=== PATIENT | male | born 1960 | race Caucasian/White ===

== ENCOUNTER 2020-01-03 16:29 | Observation (INO) ==
[2020-01-03] MEDS ORDERED: Acetaminophen 325 MG TABLET PO PRN (19:16)
[2020-01-03] MEDS ORDERED: Naloxone 0.4 MG/ML INJ IVP PRN (19:16)
[2020-01-03] MEDS ORDERED: Ondansetron 4 MG/2 ML VIAL IVP PRN (19:16)
[2020-01-03] MEDS ORDERED: D5% in Water 1,000 ML IVC PRN (19:19)
[2020-01-03] MEDS ORDERED: Dextrose Gel 15 GM/37.5 ML TUBE PO PRN ×2 (19:19)
[2020-01-03] MEDS ORDERED: *HR* Dextrose 50 % in Water (Vial) 50 ML VIAL IVP PRN (19:19)
[2020-01-03 20:32] LABS: Estimated Average Glucose 174 mg/dl
[2020-01-03] MEDS ORDERED: Ipratropium/Albuterol Neb 3 ML IH PRN (20:39)
[2020-01-03] MEDS: Insulin LISPRO 300 UNITS/3 ML VIAL SQ SCH ×2 (22:16→23:06)
[2020-01-03] MEDS: Furosemide 20 MG/2 ML VIAL IVP SCH (22:30)
[2020-01-03] MEDS: Azithromycin 500 MG in 0.9 % Sodium Chloride 250 ML IVPB SCH (22:31)
[2020-01-03] MEDS: methocarbamoL 500 MG TABLET PO PRN (23:16)
[2020-01-03] MEDS: PARoxetine 20 MG TABLET PO SCH (23:20)
[2020-01-04] MEDS: *HR* Metoprolol 5 MG/5 ML VIAL IVP SCH ×4 (01:08→16:46)
[2020-01-04 01:49] LABS: Basophils # 0.1 K/mcL (0.0-0.2); Basophils % 0.3 %; Eosinophils # 0.2 K/mcL (0.0-0.6); Hematocrit 40.2 % (37.5-50.1); Hemoglobin 13.3 g/dL (12.9-16.9); Immature Granulocytes % 1.5 % (0-4); Lymphocytes # 2.8 K/mcL (0.6-4.6); Mean Corpuscular HGB Conc 33.1 g/dL (31.6-35.5); Mean Corpuscular Hemoglobin 32.6 pg (28.0-33.3); Mean Corpuscular Volume 98.5 fL (83.0-100.0); Mean Platelet Volume 11.3 fL (9.4-12.4); Monocytes # 1.5 K/mcL (0.0-1.3); Monocytes % 8.3 %; Neutrophils # 12.9 K/mcL (1.6-8.9); Platelet Count 209 K/mcL (140-400); Red Blood Count 4.08 M/mcL (4.19-5.50); Red Cell Distribution Width 15.1 % (11.5-14.5); Segmented Neutrophils % 72.9 %; White Blood Count 17.7 K/mcL (4.3-11.1)
[2020-01-04 02:01] LABS: INR 1.4; Prothrombin Time 15.9 Seconds (9.4-12.1)
[2020-01-04 02:15] LABS: Alanine Aminotransferase 86 Units/L (7-52); Albumin 3.7 g/dL (3.5-5.7); Albumin/Globulin Ratio 1.3 (1.1-2.2); Alkaline Phosphatase 254 Units/L (34-104); Aspartate Amino Transferase 24 Units/L (13-39); BUN/Creatinine Ratio 29 (6-26); Bilirubin,Total 0.8 mg/dL (0.3-1.0); Blood Urea Nitrogen 35 mg/dL (8-23); Calcium 8.8 mg/dL (8.6-10.3); Carbon Dioxide 22 mEq/L (23-29); Chloride 102 mEq/L (98-107); Chol/HDL Ratio 5.5 (0-4.9); Cholesterol 143 mg/dL (< 200); Globulin 2.8 g/dL (2.4-3.5); Glucose 249 mg/dL (70-105); HDL Cholesterol 26 mg/dL (40-59); LDL Cholesterol,Calculated 73 mg/dL (< 100); Magnesium 1.7 mg/dL (1.6-2.6); Osmolality,Calculated 298 (280-300); Phosphorous 4.5 mg/dL (2.7-4.5); Sodium 136 mEq/L (136-145); Total Protein 6.5 g/dL (6.4-8.9); Triglycerides 221 mg/dL (< 150); eGFR For African Americans > 60 (> 60); eGFR For Non-African Americans > 60 (> 60)
[2020-01-04] MEDS: Insulin LISPRO 300 UNITS/3 ML VIAL SQ SCH ×4 (07:48→21:48)
[2020-01-04] MEDS: Furosemide 20 MG/2 ML VIAL IVP SCH (07:48)
[2020-01-04] MEDS: DilTIAZem CD (24hr) 240 MG CAP.ER.24H PO SCH (07:48)
[2020-01-04] MEDS: cefTRIAXone 1,000 MG in 0.9 % Sodium Chloride Mini Bag 100 ML IVPB SCH (09:04)
[2020-01-04] MEDS: methocarbamoL 500 MG TABLET PO PRN (11:14)
[2020-01-04] MEDS: *HR* HYDROcodone/Acet 5/325 mg TABLET PO PRN ×2 (12:02→19:19)
[2020-01-04] MEDS ORDERED: *HR* Rivaroxaban 10 MG TABLET PO SCH (12:30)
[2020-01-04] MEDS: Melatonin 3 MG TABLET PO SCH (21:46)
[2020-01-04] MEDS: Pregabalin 50 MG CAPSULE PO SCH (21:46)
[2020-01-04] MEDS: PARoxetine 20 MG TABLET PO SCH (21:46)
[2020-01-04] MEDS: Fluticasone Propionate Nasal 50 MCG/SPRAY BOTTLE NS SCH (21:47)
[2020-01-04] MEDS: Azithromycin 500 MG in 0.9 % Sodium Chloride 250 ML IVPB SCH (21:48)
[2020-01-05] MEDS: *HR* Metoprolol 5 MG/5 ML VIAL IVP SCH ×4 (00:10→16:51)
[2020-01-05 04:25] LABS: Hematocrit 39.3 % (37.5-50.1); Hemoglobin 12.9 g/dL (12.9-16.9); Mean Corpuscular HGB Conc 32.8 g/dL (31.6-35.5); Mean Corpuscular Hemoglobin 32.8 pg (28.0-33.3); Mean Platelet Volume 11.4 fL (9.4-12.4); Platelet Count 199 K/mcL (140-400); Red Blood Count 3.93 M/mcL (4.19-5.50); White Blood Count 15.9 K/mcL (4.3-11.1)
[2020-01-05 04:47] LABS: BUN/Creatinine Ratio 42 (6-26); Blood Urea Nitrogen 35 mg/dL (8-23); Calcium 8.8 mg/dL (8.6-10.3); Carbon Dioxide 25 mEq/L (23-29); Chloride 105 mEq/L (98-107); Glucose 157 mg/dL (70-105); Osmolality,Calculated 297 (280-300); Potassium 4.5 mEq/L (3.5-5.1); Sodium 138 mEq/L (136-145); eGFR For African Americans > 60 (> 60); eGFR For Non-African Americans > 60 (> 60)
[2020-01-05] MEDS: Pregabalin 50 MG CAPSULE PO SCH ×2 (07:43→19:52)
[2020-01-05] MEDS: DilTIAZem CD (24hr) 240 MG CAP.ER.24H PO SCH (07:43)
[2020-01-05] MEDS: *HR* Rivaroxaban 10 MG TABLET PO SCH (07:44)
[2020-01-05] MEDS: Furosemide 20 MG TABLET PO SCH (07:44)
[2020-01-05] MEDS: Aspirin Enteric Coated 81 MG Tablet PO SCH (07:44)
[2020-01-05] MEDS: cefTRIAXone 1,000 MG in 0.9 % Sodium Chloride Mini Bag 100 ML IVPB SCH (07:46)
[2020-01-05] MEDS: Insulin LISPRO 300 UNITS/3 ML VIAL SQ SCH ×4 (07:50→19:55)
[2020-01-05] MEDS: *HR* OxyCODONE/APAP 5/325 TABLET PO PRN (16:47)
[2020-01-05] MEDS: Azithromycin 500 MG in 0.9 % Sodium Chloride 250 ML IVPB SCH (19:52)
[2020-01-05] MEDS: Fluticasone Propionate Nasal 50 MCG/SPRAY BOTTLE NS SCH (19:54)
[2020-01-05] MEDS: Melatonin 3 MG TABLET PO SCH (21:39)
[2020-01-05] MEDS: methocarbamoL 500 MG TABLET PO PRN (21:39)
[2020-01-05] MEDS: PARoxetine 20 MG TABLET PO SCH (21:42)
[2020-01-06] MEDS: *HR* Metoprolol 5 MG/5 ML VIAL IVP SCH ×2 (00:46→06:20)
[2020-01-06 06:26] VITALS: BP 101/70
[2020-01-06] MEDS: Insulin LISPRO 300 UNITS/3 ML VIAL SQ SCH (07:54)
[2020-01-06] MEDS: Furosemide 20 MG TABLET PO SCH (07:55)
[2020-01-06] MEDS: *HR* OxyCODONE/APAP 5/325 TABLET PO PRN (07:55)
[2020-01-06] MEDS: Aspirin Enteric Coated 81 MG Tablet PO SCH (07:55)
[2020-01-06] MEDS: *HR* Rivaroxaban 10 MG TABLET PO SCH (07:55)
[2020-01-06] MEDS: DilTIAZem CD (24hr) 240 MG CAP.ER.24H PO SCH (07:55)
[2020-01-06] MEDS: Pregabalin 50 MG CAPSULE PO SCH (07:56)
[2020-01-06] MEDS: cefTRIAXone 1,000 MG in 0.9 % Sodium Chloride Mini Bag 100 ML IVPB SCH (07:57)
[2020-01-06 08:04] LABS: Hematocrit 41.6 % (37.5-50.1); Hemoglobin 13.3 g/dL (12.9-16.9); Mean Corpuscular Hemoglobin 32.4 pg (28.0-33.3); Mean Corpuscular Volume 101.5 fL (83.0-100.0); Mean Platelet Volume 11.3 fL (9.4-12.4); Platelet Count 199 K/mcL (140-400); Red Cell Distribution Width 14.6 % (11.5-14.5); White Blood Count 12.4 K/mcL (4.3-11.1)
[2020-01-06 08:19] LABS: BUN/Creatinine Ratio 33 (6-26); Blood Urea Nitrogen 27 mg/dL (8-23); Calcium 9.2 mg/dL (8.6-10.3); Carbon Dioxide 22 mEq/L (23-29); Chloride 104 mEq/L (98-107); Glucose 191 mg/dL (70-105); Osmolality,Calculated 290 (280-300); Potassium 4.5 mEq/L (3.5-5.1); Sodium 135 mEq/L (136-145); eGFR For African Americans > 60 (> 60); eGFR For Non-African Americans > 60 (> 60)
[2020-01-06] MEDS ORDERED: PARoxetine 20 MG TABLET PO SCH (09:00)
== END 2020-01-06 11:02 | disposition home or self-care (01) ==
LOC: 3BNU → SUATTDRO 18:49
PROVIDERS: ADMIT Internal Medicine; ATTEND Nurse Practitioner Adult Health